=== PATIENT | male | born 1985 | race Caucasian/White ===

== ENCOUNTER → 2022-05-13 | Outpatient (CLI) | payer BC ==
[~2022-05-13] MED LIST: BUDESONIDE; ZYRTEC5 MG PO
== END ==
LOC: ZCOL.LAB 17:12
DX: L72.9 Follicular cyst of the skin and subcutaneous tissue, unspecified (principal)

== ENCOUNTER → 2022-05-29 | Outpatient (CLI) | payer BC | LOC: ZCOL.LAB 17:05 | DX: L72.9 Follicular cyst of the skin and subcutaneous tissue, unspecified (principal) ==